=== PATIENT | male | born 1965 | race Caucasian/White ===

== ENCOUNTER → 2022-07-31 | Outpatient (CLI) | payer SELFPAY ==
--- NOTE | 2022-07-31 10:01 | ECHOD_ITS ---
Reason For Study: AFIB Procedure This was a 2D Doppler, Color Flow transthoracic echocardiogram. Exam performed in department. Left Ventricle Normal LV size. Left ventricular systolic function is normal. The estimated ejection fraction is 55 %. No regional wall motion abnormalities noted. Tricuspid Valve Normal tricuspid valve. Mild tricuspid valve insufficiency. Pulmonary artery systolic pressure is 38 mmHg. Pulmonic Valve Normal pulmonic valve. Great Vessels Mildly dilated aortic root. The pulmonary artery is normal size. Normal inferior vena cava. Pericardium/Pleural No pericardial effusion. MMode/2D Measurements & Calculations LVIDd: 4.9 cm IVSd: 1.1 cm Ao root diam: 4.1 cm LVIDs: 3.3 cm LVPWd: 1.1 cm RVDd: 3.7 cm FS: 31.2 % LAV(MOD-bp): 58.5 ml LVAd ap4: 38.3 cm2 LVAd ap2: 35.3 cm2 LAV(MOD-bp) Indexed: 22.3 ml/m2 LVLd ap4: 9.8 cm LVLd ap2: 8.8 cm LAV(MOD-sp2): 73.2 ml EDV(MOD-sp4): 122.3 ml EDV(MOD-sp2): 121.0 ml LAV(MOD-sp4): 40.8 ml EDV(sp4-el): 126.4 ml EDV(sp2-el): 120.7 ml LVAs ap4: 23.3 cm2 LVAs ap2: 19.1 cm2 LVLs ap4: 8.1 cm LVLs ap2: 7.7 cm ESV(MOD-sp4): 55.8 ml ESV(MOD-sp2): 44.1 ml ESV(sp4-el): 56.9 ml ESV(sp2-el): 40.2 ml EF(MOD-sp4): 54.3 % EF(MOD-sp2): 63.6 % EF(sp4-el): 55.0 % SV(MOD-sp4): 66.5 ml SV(MOD-sp2): 76.9 ml SV(sp4-el): 69.5 ml LA A4 area: 16.0 cm2 LA dimension(2D): 5.1 cm RA A4 area: 18.9 cm2 Doppler Measurements & Calculations MV E max jennyfer: 131.6 cm/sec Ao V2 max: 127.5 cm/sec LV V1 max: 111.8 cm/sec Ao max P.5 mmHg LV V1 max P.0 mmHg Ao V2 mean: 94.7 cm/sec LV V1 mean P.6 mmHg Ao mean P.0 mmHg LV V1 mean: 76.3 cm/sec Ao V2 VTI: 23.7 cm LV V1 VTI: 20.7 cm AV (velocity ratio): 0.87 PA V2 max: 92.6 cm/sec TR max jennyfer: 288.4 cm/sec TR max P.3 mmHg ECHO/Echo Complete Interpretation Summary Normal LV size. Left ventricular systolic function is normal. The estimated ejection fraction is 55 %. Mildly dilated aortic root. Ordering Physician: Guzman Heredia Referring Physician: Guzman Heredia Performed By: Aidee Loomis RDCS, RVT
== END | disposition home or self-care (01) ==
PROVIDERS: PCP Family Medicine; Referring Provider Family Medicine; Visit Provider Family Medicine
DX: I48.91 Unspecified atrial fibrillation (principal)
CPT/HCPCS: 93306